=== PATIENT | male | born 1940 | race Caucasian/White ===

== ENCOUNTER → 2024-04-10 07:39 | Outpatient (REF) | payer OTHER, SELFPAY | LOC: MRI 3T 07:39 | PROVIDERS: ATTENDING PHYSICIAN Urology; FAMILY PHYSICIAN Family Medicine | DX: R97.20 Elevated prostate specific antigen [PSA] (principal) | CPT/HCPCS: 72197; A9575 ==

== ENCOUNTER → 2025-08-16 10:41 | Outpatient (REF) | payer OTHER, SELFPAY | LOC: MRI 3T 10:41 | PROVIDERS: ATTENDING PHYSICIAN Ophthalmology; FAMILY PHYSICIAN Family Medicine | DX: R97.20 Elevated prostate specific antigen [PSA] (principal) | CPT/HCPCS: 72197; A9575 ==